=== PATIENT | female | born 1990 | race Caucasian/White ===

== ENCOUNTER 2018-12-21 18:16 | Emergency (ER) | payer OTHER ==
[2018-12-21] MEDS ORDERED: Dexamethasone 4 MG TAB ONE (18:42)
[2018-12-21] MEDS ORDERED: AMOXicillin 250 MG CAP ONE (18:42)
== END 2018-12-21 19:27 | disposition home or self-care (01) ==
LOC: MADERS 18:16
DX: J45.901 Unspecified asthma with (acute) exacerbation (principal); J01.90 Acute sinusitis, unspecified
CPT/HCPCS: J7620; J8540